=== PATIENT | male | born 1975 | race Caucasian/White ===

== ENCOUNTER 2018-07-15 13:38 | Emergency (ER) | payer SELFPAY ==
[2018-07-15] MEDS ORDERED: ONDANSETRON 4 MG (ODT) TAB ONE (14:18)
[2018-07-15] MEDS ORDERED: NA CHLORIDE 0.9% 1,000 ML ONE (15:29)
[2018-07-15 15:43] LABS: ALT/SGPT 86 U/L (12-78); AST/SGOT 104 U/L (15-37); Albumin 4.3 g/dL (3.4-5.0); Alkaline Phosphatase 69 U/L (45-117); BUN Blood Urea Nitrogen 6 mg/dL (7-18); Bicarbonate 24 mmol/L (21-32); Bilirubin Direct 0.3 mg/dL (0-0.2); Bilirubin Total 0.9 mg/dL (0.2-1.0); Glucose Level 101 mg/dL (74-106); Lipase 251 U/L (73-393); Potassium 3.9 mmol/L (3.5-5.1); Protein, Total 8.8 g/dL (6.4-8.2); Sodium Level 137 mmol/L (136-145)
[2018-07-15 15:44] LABS: Absolute Lymphocytes (CBC) 1.5 K/uL (0.7-4.9); Absolute Monocytes 0.8 K/uL (0.1-1.3); Absolute Neutrophil 8.1 K/uL (1.8-8.0); Basophils % 0.7 % (0-1.3); Eosinophils % 0.6 % (0-4.4); Lymphocytes % 14.4 % (15.3-44.8); MPV 8.4 fL (7.6-11.3); Monocytes % 7.2 % (3.3-12.3); RBC Red Blood Cell Count 4.66 M/uL (4.33-5.43)
[2018-07-15 17:27] LABS: Blood Morphology Comment NOT SEEN (NOT SEEN); Platelet Estimate ADEQ
[2018-07-15 17:28] LABS: Urine White Blood Cell Casts OK
--- NOTE | 2018-07-15 17:29 | ER ---
Nurse's Notes [facility] Name: Ronnie Díaz Age: 42 yrs Sex: Male : 1975 Arrival Date: 07/15/2018 Time: 13:42 Bed 28 Private MD: None, None Diagnosis: Vomiting, unspecified;Diarrhea, unspecified Presentation: 07/15 13:59 Presenting complaint: Patient states: N/V/D x 2 days. Denies abdominal pain. States aj1 that he has been feeling "hot and then cold", but did not check his temperature at home. Transition of care: patient was not received from another setting of care. Onset of symptoms was July 11, 2018. Risk Assessment: Do you want to hurt yourself or someone else? Patient reports no desire to harm self or others. Initial Sepsis Screen: Does the patient meet any 2 criteria? HR > 90 bpm. No. Patient's initial sepsis screen is negative. Does the patient have a suspected source of infection? No. Patient's initial sepsis screen is negative. Care prior to arrival: None. 13:59 Method Of Arrival: Ambulatory aj 13:59 Acuity: ESTEFANIA 3 aj1 Triage Assessment: 14:01 General: Appears in no apparent distress. comfortable, Behavior is calm, cooperative, aj1 appropriate for age. Pain: Denies pain. Neuro: Level of Consciousness is awake, alert, obeys commands. Cardiovascular: Patient's skin is warm and dry. Respiratory: Airway is patent Respiratory effort is even, unlabored, Respiratory pattern is regular, symmetrical. GI: Reports diarrhea, nausea, vomiting. Historical: - Allergies: 14:01 No Known Allergies; aj1 - Home Meds: 14:01 None [Active]; aj1 - PMHx: 14:01 None; aj1 - PSHx: 14:01 None; aj1 - Immunization history:: Flu vaccine is not up to date. - Social history:: Smoking status: Patient uses tobacco products, smokes one pack cigarettes per day. - Ebola Screening: : Patient denies travel to an Ebola-affected area in the 21 days before illness onset. Screenin:22 Abuse screen: Denies threats or abuse. Denies injuries from another. Nutritional rv screening: No deficits noted. Tuberculosis screening: No symptoms or risk factors identified. Fall Risk None identified. Assessment: 15:22 General: Appears in no apparent distress. uncomfortable, Behavior is calm, cooperative. rv General: Smells of alcohol. Pain: Denies pain. Neuro: Level of Consciousness is awake, alert, obeys commands, Oriented to person, place, time, situation. Cardiovascular: Capillary refill < 3 seconds. Respiratory: Airway is patent. GI: Abdomen is flat, Reports nausea, vomiting. : No signs and/or symptoms were reported regarding the genitourinary system. EENT: No signs and/or symptoms were reported regarding the EENT system. Derm: Skin is intact. Musculoskeletal: No signs and/or symptoms reported regarding the musculoskeletal system. 16:51 Reassessment: Patient appears in no apparent distress at this time. rv Vital Signs: 14:01 BP 137 / 97; Pulse 95; Resp 18; Temp 98.7; Pulse Ox 97% on R/A; Weight 68.04 kg (R); aj1 Height 5 ft. 10 in. (177.80 cm) (R); Pain 0/10; 15:25 BP 121 / 87; Pulse 80; Resp 16 S; Pulse Ox 97% on R/A; rv 16:00 BP 133 / 75; Pulse 83 MON; Resp 16 S; Pulse Ox 97% on R/A; rv 16:30 BP 141 / 87; Pulse 86; Resp 17 S; Pulse Ox 98% on R/A; rv 14:01 Body Mass Index 21.52 (68.04 kg, 177.80 cm) aj1 ED Course: 13:42 Patient arrived in ED. sb2 13:42 None, None is Private Physician. sb2 13:48 Patient's name was called from ER lobby. No response. aj1 14:01 Triage completed. aj1 14:01 Arm band placed on Patient placed in waiting room, Patient notified of wait time. aj1 15:00 Aaron Vargas PA is PHCP. [facility] 15:00 Ian Victor MD is Attending Physician. [facility] 15:21 Basic Metabolic Panel Sent. rv 15:21 CBC with Diff Sent. rv 15:21 Creatinine for Radiology Sent. rv 15:21 Hepatic Function Sent. rv 15:21 Lipase Sent. rv 15:22 ETOH Level Sent. rv 15:23 Patient has correct armband on for positive identification. Placed in gown. Bed in low rv position. Call light in reach. Side rails up X 1. Pulse ox on. NIBP on. 17:31 No provider procedures requiring assistance completed. Patient did not have IV access rv during this emergency room visit. Administered Medications: 14:15 Drug: Zofran 4 mg Route: PO; aj1 15:21 Drug: NS 0.9% 1000 ml Route: IV; Rate: 1 bolus; Site: left antecubital; rv 15:59 Follow up: IV Status: Completed infusion; IV Intake: 1000ml rv Intake: 15:59 IV: 1000ml; Total: 1000ml. rv Outcome: 17:28 Discharge ordered by . willi 17:32 Discharged to home ambulatory. rv 17:32 Condition: good 17:32 Discharge instructions given to patient, Instructed on discharge instructions, follow up and referral plans. medication usage, Demonstrated understanding of instructions, follow-up care, medications, Prescriptions given X 1. 17:33 Patient left the ED. rv Signatures: Leslie Tyson, RN RN aj1 Aaron Vargas PA PA jmm Billeau, Sheri sb2 Boby Richardson, RN RN rv
--- NOTE | 2018-07-15 17:29 | EDPHYS ---
Physician Documentation [facility] Name: Ronnie Díaz Age: 42 yrs Sex: Male : 1975 Arrival Date: 07/15/2018 Time: 13:42 Bed 28 Private MD: None, None ED Physician Ian Victor HPI: 07/15 15:04 This 42 yrs old Male presents to ER via Ambulatory with complaints of jmm Nausea/Vomiting/Diarrhea. 15:04 The patient presents to the emergency department with nausea, vomiting, diarrhea. jmm Onset: The symptoms/episode began/occurred acutely, 2 day(s) ago. Possible causes: unknown. The symptoms are aggravated by nothing. The symptoms are alleviated by nothing. Associated signs and symptoms: Pertinent positives: abdominal pain, Pertinent negatives:. This is a 42 year old male with no chronic medical conditions that presents to the ED with generalized abdominal pain, vomiting, diarrhea beginning two days ago. patient denies infectious exposure, recent travel, recent abx use. . Historical: - Allergies: 14:01 No Known Allergies; aj1 - Home Meds: 14:01 None [Active]; aj1 - PMHx: 14:01 None; aj1 - PSHx: 14:01 None; aj1 - Immunization history:: Flu vaccine is not up to date. - Social history:: Smoking status: Patient uses tobacco products, smokes one pack cigarettes per day. - Ebola Screening: : Patient denies travel to an Ebola-affected area in the 21 days before illness onset. ROS: 15:04 Eyes: Negative for injury, pain, redness, and discharge, Cardiovascular: Negative for jmm chest pain, palpitations, and edema, Respiratory: Negative for shortness of breath, cough, wheezing, and pleuritic chest pain. 15:04 Constitutional: Positive for chills. 15:04 Abdomen/GI: Positive for abdominal pain, nausea and vomiting, diarrhea. 15:04 All other systems are negative. Exam: 15:04 Head/Face: atraumatic. Eyes: EOMI, no conjunctival erythema appreciated ENT: Moist jmm Mucus Membranes Neck: Trachea midline, Supple Chest/axilla: Normal chest wall appearance and motion. Cardiovascular: Regular rate and rhythm. No edema appreciated Respiratory: Normal respirations, no respiratory distress appreciated 15:04 Constitutional: The patient appears alert, awake, uncomfortable. 15:04 Abdomen/GI: Inspection: abdomen appears normal, Bowel sounds: normal, Palpation: soft, mild abdominal tenderness, in all quadrants. 15:04 Back: ROM is normal. 15:04 Musculoskeletal/extremity: ROM: intact in all extremities. 15:04 Skin: Appearance: Color: normal in color. 15:04 Neuro: Orientation: is normal, Mentation: is normal, Memory: is normal, Gait: is steady. 15:04 Psych: Behavior/mood is pleasant, cooperative. Vital Signs: 14:01 BP 137 / 97; Pulse 95; Resp 18; Temp 98.7; Pulse Ox 97% on R/A; Weight 68.04 kg (R); aj1 Height 5 ft. 10 in. (177.80 cm) (R); Pain 0/10; 15:25 BP 121 / 87; Pulse 80; Resp 16 S; Pulse Ox 97% on R/A; rv 16:00 BP 133 / 75; Pulse 83 MON; Resp 16 S; Pulse Ox 97% on R/A; rv 16:30 BP 141 / 87; Pulse 86; Resp 17 S; Pulse Ox 98% on R/A; rv 14:01 Body Mass Index 21.52 (68.04 kg, 177.80 cm) aj1 MDM: 15:04 Patient medically screened. willi 17:27 Data reviewed: vital signs, nurses notes. Counseling: I had a detailed discussion with willi the patient and/or guardian regarding: the historical points, exam findings, and any diagnostic results supporting the discharge/admit diagnosis, lab results, the need for outpatient follow up, to return to the emergency department if symptoms worsen or persist or if there are any questions or concerns that arise at home. ED course: Abdomen is non tender to palpation of reexamination. Symptoms appear most likely related to gastroenteritis. Patient given early appendicitis return precautions. Patient understood and agrees with the plan of care. . 07/15 15:07 Order name: Basic Metabolic Panel; Complete Time: 15:53 [facility] 07/15 15:07 Order name: CBC with Diff; Complete Time: 17:30 [facility] 07/15 15:07 Order name: Creatinine for Radiology; Complete Time: 15:53 [facility] 07/15 15:07 Order name: Hepatic Function; Complete Time: 15:53 [facility] 07/15 15:07 Order name: Lipase; Complete Time: 15:53 [facility] 07/15 15:07 Order name: ETOH Level; Complete Time: 15:53 [facility] 07/15 15:07 Order name: IV Saline Lock; Complete Time: 15:15 [facility] 07/15 15:07 Order name: Labs collected and sent; Complete Time: 15:15 [facility] 07/15 16:54 Order name: PO challenge; Complete Time: 17:05 [facility] 07/15 17:28 Order name: CBC Smear Scan; Complete Time: 17:30 EDMS Administered Medications: 14:15 Drug: Zofran 4 mg Route: PO; aj1 15:21 Drug: NS 0.9% 1000 ml Route: IV; Rate: 1 bolus; Site: left antecubital; rv 15:59 Follow up: IV Status: Completed infusion; IV Intake: 1000ml rv Disposition: 07/15/18 17:28 Discharged to Home. Impression: Vomiting, unspecified, Diarrhea, unspecified. - Condition is Stable. - Discharge Instructions: Food Choices to Help Relieve Diarrhea, Adult, Nausea and Vomiting, Adult, [id number]. - Prescriptions for Zofran ODT 4 mg Oral tablet,disintegrating - place 1 tablet by TRANSLINGUAL route every 4-6 hours; 20 tablet. - Medication Reconciliation Form, Thank You Letter, Antibiotic Education, Prescription Opioid Use form. - Follow up: Private Physician; When: 2 - 3 days; Reason: Recheck today's complaints, Continuance of care, Re-evaluation by your physician. Addendum: 07/26/2018 07:30 Co-signature as Attending Physician, Ian Victor MD I agree with the assessment and k dr plan of care. Signatures: Dispatcher [employer] EDMS Leslie Tyson RN RN aj1 Ian Victor MD MD kdr Mickail, Joel, PA PA m Boby Richardson, RN RN rv Corrections: (The following items were deleted from the chart) 07/15 17:33 17:28 07/15/2018 17:28 Discharged to Home. Impression: Vomiting, unspecified; Diarrhea, rv unspecified. Condition is Stable. Forms are Medication Reconciliation Form, Thank You Letter, Antibiotic Education, Prescription Opioid Use. Follow up: Private Physician; When: 2 - 3 days; Reason: Recheck today's complaints, Continuance of care, Re-evaluation by your physician. aamirm
== END 2018-07-15 17:33 | disposition home or self-care (01) ==
LOC: ER 13:38
DX: R19.7 Diarrhea, unspecified (principal); F17.210 Nicotine dependence, cigarettes, uncomplicated
CPT/HCPCS: 36415; 80048; 80076; 80320; 83690; 85025; 96360; 99284; J7030